=== PATIENT | male | born 1965 | race Caucasian/White ===

== ENCOUNTER 2023-07-31 09:06 | Day surgery (SDC) | payer MEDICARE ==
[2023-07-29 09:15] VITALS: BMI 21.7
[~2023-07-31 09:06] MED LIST: SODIUM CHLORIDE 0.9% 1,000 ML IV SCH
[2023-07-31] MEDS: SODIUM CHLORIDE 0.9% 500 ML 500 ML IV ONE (09:18)
[2023-07-31 09:33] VITALS: BP 116/74; PULSE 74; RESP 16; TEMP 97.9
--- NOTE | 2023-07-31 15:05 | P.EPPROC ---
- EP Procedure Note Electrophysiology Procedure Note: Diagnosis Recurrent syncope Baseline 12 EKG shows sinus mechanism normal UT narrow QRS normal ST segments No delta waves, no epsilon waves normal ST segments in the precordial leads The terminal portion of the QRS in lead V1 has a sharp notch, possible epsilon wave Tilt table test per protocol Baseline blood pressure 99/59 mmHg, baseline heart rate 66 beats minute Patient was tilted upright in angle of 70 degrees per protocol His blood pressure remained between 90 to 100 mmHg while his heart rate remained in the 80s sinus mechanism He felt weak and nauseous occasionally but there was no evidence for neurocardiogenic phenomena or syncope When he was laid supine his blood pressure was 101/74 mmHg Impression Twelve-lead EKG shows possible sharp terminal signal in the QRS of lead V1. Consider the presence of an epsilon wave However the ST segments in the precordial leads are normal, there is no T wave inversion noted Low normal blood pressure without evidence for neurocardiogenic phenomena or dysautonomia
== END 2023-07-31 11:30 | disposition home or self-care (01) ==
LOC: CATHEP 09:06
PROVIDERS: ATTEND Internal Medicine Clinical Cardiac Electrophysiology
DX: R55 Syncope and collapse (principal)
CPT/HCPCS: 93660

== ENCOUNTER 2024-04-23 14:01 | Day surgery (SDC) | payer MEDICARE ==
[2024-04-22 12:01] VITALS: BMI 20.4
[~2024-04-23 14:01] MED LIST changes: +LACTATED RINGERS 1,000 ML IV SCH; -SODIUM CHLORIDE 0.9% 1,000 ML IV SCH
[2024-04-23 15:34] VITALS: RESP 18; TEMP 97.3
[2024-04-23] MEDS: NA PHOS,M-B/NA PHOS,DI-BA 133 ML ENEMA RECTAL STA (15:35)
--- NOTE | 2024-04-23 16:44 | P.PCN ---
Date of Procedure: 04/23/24 Procedure(s) Performed: BRIEF HISTORY: Patient is a 59-year-old pleasant white male scheduled for an flexible sigmoidoscopies for evaluation of positive Cologuard. 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 He was noted to have positive Cologuard in the rectal discharge and hence scheduled for sigmoidoscopy today. PROCEDURE PERFORMED: Flexible sigmoidoscopy PREOPERATIVE DIAGNOSIS: Positive Cologuard. IV sedation per Anesthesia. PROCEDURE: After informed consent was obtained, the patient, was brought into the endoscopy unit. IV sedation was administered by Anesthesia under continuous monitoring. Digital rectal examination revealed anal narrowing. At this time Olympus EGD scope was inserted into the rectum and the Wang's pouch was examined which appeared 2 inches in length. The mucosa appeared normal. There were no polyps or masses identified. The patient tolerated the procedure well. IMPRESSION: Normal Wang's pouch with no evidence of colorectal neoplasia RECOMMENDATIONS: Findings of this examination were discussed with the patient. Follow-up in the office as needed..
[2024-04-23 16:57] VITALS: BP 117/70; PULSE 72
== END 2024-04-23 17:05 | disposition home or self-care (01) ==
LOC: ORWHC2ENDO 14:01
PROVIDERS: ATTEND Internal Medicine Gastroenterology
DX: R19.5 Other fecal abnormalities (principal); Z90.49 Acquired absence of other specified parts of digestive tract
CPT/HCPCS: 45330